=== PATIENT | female | born 1990 | race Caucasian/White ===

== ENCOUNTER 2022-06-06 19:57 | Emergency (ER) | payer BC, OTHER ==
[~2022-06-06] VITALS: Ht 157.5 cm; Wt 65.8 kg
[2022-06-06 20:40] VITALS: BP 112/73
--- NOTE | 2022-06-06 20:43 | NUR ---
TO LOBBY A/W BED AMBULATORY
--- NOTE | 2022-06-06 21:19 | NUR ---
Shae prieto in [facility] - 06/06/22 at 2120 by ARYA Patient being evaluated by physician
--- NOTE | 2022-06-06 21:24 | NUR ---
PT TAKEN TO ULTRASOUND
[2022-06-06 21:39] LABS: APPEARANCE,URINE CLEAR (CLEAR); BILIRUBIN,URINE NEGATIVE (NEGATIVE); BLOOD, URINE TRACE-I (NEGATIVE); COLOR,URINE YELLOW (YELLOW); LEUKOCYTE ESTERASE ,URINE NEGATIVE (NEGATIVE); NITRITE, URINE NEGATIVE (NEGATIVE); PH,URINE 6.5 (5.0-9.0); UGLUCOSE NEGATIVE (NEGATIVE)
--- NOTE | 2022-06-06 21:40 | NUR ---
PT RETURN FROM [facility]
[2022-06-06 21:51] LABS: OTHER CASTS, URINE None Seen /LPF (None Seen); URIC ACID CRYSTALS,URINE 0-10 /HPF (None Seen); WBC,URINE 0-5 /HPF (0-5)
[2022-06-06 22:00] LABS: BASOPHILS % (AUTO) 0.2 % (0.0-2.0); EOSINOPHILS # (AUTO) 0.1 K/uL (0-0.4); EOSINOPHILS % (AUTO) 1.4 % (0.0-4.0); HEMATOCRIT 38.3 % (36-48); HEMOGLOBIN 13.2 g/dL (12.0-16.0); LYMPHOCYTES # (AUTO) 2.7 K/uL (2.5-16.5); LYMPHOCYTES % (AUTO) 37.5 % (20.5-51.1); MEAN CORPUSCULAR HEMOGLOBIN 30 pg (27-31); MEAN CORPUSCULAR HGB CONC 34 g/dL (33-37); MEAN CORPUSCULAR VOLUME 86.6 fL (80-94); MONOCYTES # (AUTO) 0.6 K/uL (0.8-1.0); MONOCYTES % (AUTO) 8.6 % (1.7-9.3); NEUTROPHILS # (AUTO) 3.7 K/uL (1.8-7.7); NEUTROPHILS % (AUTO) 52.3 % (42.2-75.2); PLATELET COUNT (AUTO) 284 K/uL (140-450); RED BLOOD CELL COUNT(AUTO) 4.43 MIL/uL (4.20-5.40); RED CELL DISTRIBUTION WIDTH 13.3 % (11.6-13.7); WHITE BLOOD COUNT (AUTO) 7.1 K/uL (4.8-10.8)
--- NOTE | 2022-06-06 22:14 | NUR ---
Patient being evaluated by physician
[2022-06-06] MEDS ORDERED: CEPH-588 PO (22:35)
== END 2022-06-06 22:50 | disposition home or self-care (01) ==
LOC: MED 19:57
DX: O20.0 Threatened abortion (principal); Z3A.09 9 weeks gestation of pregnancy; Z79.899 Other long term (current) drug therapy
CPT/HCPCS: 36415; 76801; 81001; 81025; 84702; 85025; 86900; 86901; 99284; Q0092

== ENCOUNTER 2022-07-14 14:01 | Emergency (ER) | payer BC, OTHER ==
[~2022-07-14] VITALS: Ht 157.5 cm; Wt 68.0 kg
[~2022-07-14 14:01] MED LIST: CEPH-588 PO
[2022-07-14 14:07] VITALS: BP 117/69
--- NOTE | 2022-07-14 14:11 | NUR ---
pt ambulated to bed 11. urine collected and sent to lab. pt on monitor and in gown.
--- NOTE | 2022-07-14 14:18 | NUR ---
31/F WALKED IN C/O VAG BLEED AND CRAMPING ONSET TODAY. PT REPORTS 14 WKS . PT STATES BEING SEEN HERE FOR SAME S/SX AT 9WKS BUT WAS DC. DENIES ANY OTHER COMPLAINTS AT THIS TIME. PMH: DENIES.
[2022-07-14 14:23] LABS: APPEARANCE,URINE CLEAR (CLEAR); BILIRUBIN,URINE NEGATIVE (NEGATIVE); BLOOD, URINE LARGE (NEGATIVE); COLOR,URINE YELLOW (YELLOW); LEUKOCYTE ESTERASE ,URINE NEGATIVE (NEGATIVE); NITRITE, URINE NEGATIVE (NEGATIVE); UGLUCOSE NEGATIVE (NEGATIVE)
[2022-07-14 14:30] LABS: BASOPHILS % (AUTO) 0.2 % (0.0-2.0); EOSINOPHILS % (AUTO) 0.4 % (0.0-4.0); HEMOGLOBIN 12.8 g/dL (12.0-16.0); LYMPHOCYTES # (AUTO) 1.9 K/uL (2.5-16.5); LYMPHOCYTES % (AUTO) 20.7 % (20.5-51.1); MEAN CORPUSCULAR HEMOGLOBIN 30 pg (27-31); MEAN CORPUSCULAR HGB CONC 35 g/dL (33-37); MEAN CORPUSCULAR VOLUME 87.6 fL (80-94); MONOCYTES # (AUTO) 0.5 K/uL (0.8-1.0); MONOCYTES % (AUTO) 5.9 % (1.7-9.3); NEUTROPHILS # (AUTO) 6.8 K/uL (1.8-7.7); NEUTROPHILS % (AUTO) 72.8 % (42.2-75.2); PLATELET COUNT (AUTO) 269 K/uL (140-450); RED BLOOD CELL COUNT(AUTO) 4.22 MIL/uL (4.20-5.40); RED CELL DISTRIBUTION WIDTH 13.5 % (11.6-13.7); WHITE BLOOD COUNT (AUTO) 9.3 K/uL (4.8-10.8)
[2022-07-14 14:35] LABS: RBC,URINE 11-20 (MOD) /HPF (0-5); WBC,URINE 0-5 /HPF (0-5)
--- NOTE | 2022-07-14 14:57 | NUR ---
us at bedside
--- NOTE | 2022-07-14 16:00 | NUR ---
Patient discharged with v/s stable. Written and verbal after care instructions given and explained. Patient verbalized understanding. Ambulatory with steady gait. All questions addressed prior to discharge. Advised to follow up with PMD.
== END 2022-07-14 16:00 | disposition home or self-care (01) ==
LOC: MED 14:01
DX: O20.0 Threatened abortion (principal); Z3A.14 14 weeks gestation of pregnancy
CPT/HCPCS: 36415; 76805; 81001; 84702; 85025; 86900; 86901; 99284; Q0092; 88300; 88307